=== PATIENT | female | born 1995 | race Caucasian/White ===

== ENCOUNTER 2019-06-19 19:11 | Emergency (ER) | payer BC ==
--- NOTE | 2019-06-19 19:44 | ED ---
GI/ HPI - HPI Summary HPI Summary: 23 yo female presents to [facility] with urinary burning, frequency, and bladder pressure that began this afternoon. She tells me that she has a long history of chronic UTIs. Her last one was about 2-3 weeks ago and she was placed on macrobid with full resolution of her symptoms. She denies , fever, chills, abdominal pain, flank pain, n/v. Has been taking AZO with good relief. - History of Current Complaint Chief Complaint: EDUrogenitalProblems Time Seen by Provider: 06/19/19 19:43 Stated Complaint: "POSSIBLE UTI PER PT" Hx Obtained From: Patient Severity: Moderate Current Severity: Moderate Pain Intensity: 7 - Allergy/Home Medications Allergies/Adverse Reactions: Allergies Allergy/AdvReac Type Severity Reaction Status Date / Time No Known Allergies Allergy Verified 06/19/19 19:15 Home Medications: Home Medications Cranberry 1 tab PO DAILY PRN 06/19/19 [History Confirmed 06/19/19] Methenamine/Sodium Salicylate [Azo Urinary Tract Defense Tab] 1 tab PO BID PRN 06/19/19 [History Confirmed 06/19/19] Norethindrone AC-Eth Estradiol [Microgestin 21 1.5-30 Tab] 1 tab PO DAILY [History Confirmed 06/19/19] PMH/Surg Hx/FS Hx/Imm Hx Endocrine/Hematology History: Denies: Hx Diabetes, Hx Anemia Cardiovascular History: Denies: Hx Angina, Hx Cardiac Arrest Respiratory History: Denies: Hx Asthma, Hx Chronic Obstructive Pulmonary Disease (COPD) GI History: Denies: Hx Gastroesophageal Reflux Disease History: Denies: Hx Acute Renal Failure, Hx Kidney Stones Neurological History: Denies: Hx CVA Psychiatric History: Denies: Hx Anxiety, Hx Depression - Surgical History Surgical History: None Infectious Disease History: No Infectious Disease History: Denies: Traveled Outside the [place] in Last 30 Days Review of Systems Constitutional: Negative Cardiovascular: Negative Respiratory: Negative Gastrointestinal: Negative Positive: dysuria Skin: Negative Neurological: Negative All Other Systems Reviewed And Are Negative: No Physical Exam - Summary Physical Exam Summary: GENERAL: NAD. WDWN. No pain distress. SKIN: No rashes, sores, lesions, or open wounds. NECK: Supple. Nontender. No lymphadenopathy. CHEST: CTAB. No r/r/w. No accessory muscle use. Breathing comfortably and in no distress. CV: RRR. Without m/r/g. Pulses intact. Cap refill <2seconds ABDOMEN: Soft. NTTP. No CVA tenderness. Bowel sounds present NEURO: Alert. PSYCH: Age appropriate behavior. Triage Information Reviewed: Yes Vital Signs On Initial Exam: Initial Vitals Temp Pulse Resp BP Pulse Ox 98.4 F 84 16 137/79 99 06/19/19 19:14 06/19/19 19:14 06/19/19 19:14 06/19/19 19:14 06/19/19 19:14 Laboratory Tests 06/19/19 20:17 Urine Color Straw Urine Appearance Cloudy Urine pH 8.0 Ur Specific [place] 1.016 Urine Protein Negative Urine Ketones Negative Urine Blood 1+ A Urine Nitrate Negative Urine Bilirubin Negative Urine Urobilinogen Negative Ur Leukocyte Esterase 2+ A Urine WBC (Auto) 3+(>20/hpf) A Urine RBC (Auto) 3+(>10/hpf) A Ur Squamous Epith Cells Present A Urine Bacteria 1+ A Urine Glucose Negative Vital Signs Reviewed: Yes Diagnostics - Vital Signs Vital Signs Temp Pulse Resp BP Pulse Ox 06/19/19 19:14 98.4 F 84 16 137/79 99 - Laboratory Lab Statement: Any lab studies that have been ordered have been reviewed, and results considered in the medical decision making process. GIGU Course/Dx - Course Course Of Treatment: UA positive, but pt has been taking AZO. Will send urine for culture and treat with keflex. Will refer her to Urology given her frequent UTIs - Diagnoses Provider Diagnoses: UTI (urinary tract infection) Discharge ED - Sign-Out/Discharge Documenting (check all that apply): Patient Departure Patient Received Moderate/Deep Sedation with Procedure: No - Discharge Plan Condition: Stable Disposition: HOME Prescriptions: Cephalexin CAP* [Keflex CAP*] 500 mg PO BID #14 cap Patient Education Materials: Urinary Tract Infection in Women (DC) Referrals: Levar Yeh MD [Medical Doctor] - If Needed Additional Instructions: If you develop a fever, shortness of breath, chest pain, new or worsening symptoms - please call your PCP or go to the ED immediately. I recommend that you call a Urologist (below) to schedule an appointment for further evaluation of your frequent UTIs - Billing Disposition and Condition Condition: STABLE Disposition: Home - Attestation Statements Provider Attestation: I was available for consultation for this patient. I did not evaluate the patient or participate in any medical decision making or disposition decisions unless I am specifically named in the chart as having consulted on the patient. If I have consulted on the patient, please see my own ED note on the patient encounter. Alex Pelayo MD
[2019-06-19 20:30] LABS: Urine Appearance Cloudy; Urine Bacteria 1+ (Absent); Urine Bilirubin Negative (Negative); Urine Blood 1+ (Negative); Urine Color Straw; Urine Glucose Negative (Negative); Urine Ketones Negative (Negative); Urine Nitrite Negative (Negative); Urine Protein Negative (Negative); Urine Red Blood Cell 3+(>10/hpf) (Absent); Urine Specific Gravity 1.016 (1.010-1.030); Urine Squamous Epithelial Cell Present (Absent); Urine Urobilinogen Negative (Negative); Urine White Blood Cell 3+(>20/hpf) (Absent)
[2019-06-19] MEDS ORDERED: Cephalexin CAP* 500 MG PO ONE (20:32)
[2019-06-19 21:31] VITALS: BP 125/75
== END 2019-06-19 21:25 | disposition home or self-care (01) ==
LOC: ED 19:11
DX: N39.0 Urinary tract infection, site not specified (principal); Z79.899 Other long term (current) drug therapy
CPT/HCPCS: 81003; 81015; 87086; 99282; A9270-GY